=== PATIENT | male | born 1935 | race Caucasian/White ===

== ENCOUNTER 2017-05-18 10:18 | Outpatient (CLI) | payer OTHER | END 2017-05-18 10:26 | disposition home or self-care (01) | LOC: SONOGRAMA 10:18 | DX: N39.3 Stress incontinence (female) (male) (principal) ==

== ENCOUNTER 2018-05-10 11:10 | Outpatient (CLI) | payer OTHER | END 2018-05-10 15:49 | disposition home or self-care (01) | LOC: RAD 11:10 | DX: R05 Cough (principal) ==

== ENCOUNTER 2019-02-21 08:51 | Outpatient (CLI) | payer OTHER | END 2019-02-21 08:56 | disposition home or self-care (01) | LOC: SONOGRAMA 08:51 | DX: N32.81 Overactive bladder (principal) ==

== ENCOUNTER 2019-06-16 16:22 | Outpatient (CLI) | payer OTHER | END 2019-06-16 16:24 | disposition home or self-care (01) | LOC: RAD 16:22 | DX: S72.142D Displaced intertrochanteric fracture of left femur, subsequent encounter for closed fracture with routine healing (principal) ==

== ENCOUNTER 2019-06-25 16:26 | Outpatient (CLI) | payer OTHER | END 2019-06-25 16:55 | disposition home or self-care (01) | LOC: NUCLEAR 16:26 | DX: S72.142D Displaced intertrochanteric fracture of left femur, subsequent encounter for closed fracture with routine healing (principal); I87.2 Venous insufficiency (chronic) (peripheral) ==

== ENCOUNTER → 2019-06-26 12:54 | Outpatient (CLI) | payer OTHER | END | disposition home or self-care (01) | LOC: LAB 12:54 | DX: D64.89 Other specified anemias (principal); N39.0 Urinary tract infection, site not specified; N40.1 Benign prostatic hyperplasia with lower urinary tract symptoms; E11.21 Type 2 diabetes mellitus with diabetic nephropathy ==

== ENCOUNTER 2022-08-01 09:34 | Outpatient (CLI) | payer OTHER | END 2022-08-01 09:37 | disposition home or self-care (01) | LOC: NUCLEAR 09:34 | PROVIDERS: ATTEND Family Medicine Geriatric Medicine | DX: M81.0 Age-related osteoporosis without current pathological fracture (principal) ==

== ENCOUNTER 2024-02-25 15:49 | Outpatient (CLI) | payer OTHER | END 2024-02-25 16:01 | disposition home or self-care (01) | LOC: RAD 15:49 | PROVIDERS: ATTEND Family Medicine Geriatric Medicine | DX: M54.50 Low back pain, unspecified (principal) ==

== ENCOUNTER 2025-01-19 12:42 | Outpatient (CLI) | payer OTHER | END 2025-01-19 12:43 | disposition home or self-care (01) | LOC: SONOGRAMA 12:42 | PROVIDERS: ATTEND Urology | DX: R10.2 Pelvic and perineal pain (principal) ==